=== PATIENT | female | born 1940 | race African-American/Black ===

== ENCOUNTER 2020-07-08 00:50 | Emergency (ER) | payer OTHER ==
[~2020-07-08] VITALS: Ht 149.9 cm; Wt 56.5 kg
[2020-07-08] MEDS ORDERED: SODIUM CHLORIDE 0.9% 100 ML ONE (01:18)
[2020-07-08] MEDS ORDERED: IOVERSOL 350 MG/ML 100 ML VIAL ONE (01:18)
[2020-07-08] MEDS ORDERED: CLOP75TA60 PO (01:26)
[2020-07-08] MEDS ORDERED: METO25XL PO (01:26)
[2020-07-08] MEDS ORDERED: MONT4GRA2 PO (01:27)
[2020-07-08] MEDS ORDERED: ASPI-728 PO (01:27)
[2020-07-08 02:03] LABS: BASOPHILS % (AUTO) 0.5 % (0.0-2.0); EOSINOPHILS % (AUTO) 1.4 % (1.0-6.0); HEMOGLOBIN 15.7 g/dL (12.0-16.0); LYMPHOCYTES # (AUTO) 2.5 K/uL (1.0-4.8); LYMPHOCYTES % (AUTO) 25.8 % (22.0-44.0); MEAN CORPUSCULAR HEMOGLOBIN 27.5 pg (26.0-34.0); MEAN CORPUSCULAR HGB CONC 32.6 G/dL (31.0-37.0); MEAN CORPUSCULAR VOLUME 84 fL (80-100); MONOCYTES # (AUTO) 0.8 K/uL (0.1-1.0); MONOCYTES % (AUTO) 8.9 % (2.0-9.0); NEUTROPHILS % (AUTO) 63.4 % (40.0-70.0); PLATELET COUNT (AUTO) 524 K/uL (150-450); RED BLOOD CELL COUNT(AUTO) 5.69 MIL/uL (4.00-5.20); RED CELL DISTRIBUTION WIDTH 13.8 % (11.5-14.5)
[2020-07-08 02:14] LABS: INR 1.1 (0.9-1.1); PROTHROMBIN TIME 11.9 SEC (9.4-11.6)
[2020-07-08 02:17] LABS: ANION GAP 10 mmol/L (8-16); CALCIUM, TOTAL 10.6 mg/dL (8.8-10.5); CARBON DIOXIDE 29 mmol/L (22-29); CHLORIDE 101 mmol/L (98-107); CREATININE 0.95 mg/dL (0.60-1.30); GLUCOSE,RANDOM 130 mg/dL (70-110); POTASSIUM 3.9 mmol/L (3.5-5.1); SODIUM SERUM 140 mmol/L (136-145); UREA NITROGEN, BLOOD 13 mg/dL (7-18)
[2020-07-08 02:19] LABS: GLOMERULAR FILTR. RATE CALC > 60 mL/min (>60)
[2020-07-08 02:22] LABS: ALANINE AMINOTRANSFERASE 42 U/L (12-78); ALBUMIN 3.3 g/dL (3.4-5.0); ALKALINE PHOSPHATASE 90 U/L (46-116); ASPARTATE AMINOTRANSFERASE 60 U/L (15-37); BILIRUBIN,TOTAL 0.4 mg/dL (0.1-1.0)
[2020-07-08 02:57] LABS: COVID AG,FIA SOURCE NASOPHARYNGEAL
[2020-07-08] MEDS ORDERED: SODIUM CHLORIDE 0.9% 1,000 ML IV ONE (03:00)
[2020-07-08 03:58] VITALS: BP 124/60
== END 2020-07-08 06:05 | disposition short-term general hospital (02) ==
LOC: EMS 00:52
DX: G91.9 Hydrocephalus, unspecified (principal); I95.9 Hypotension, unspecified; I63.439 Cerebral infarction due to embolism of unspecified posterior cerebral artery; R55 Syncope and collapse; F17.200 Nicotine dependence, unspecified, uncomplicated; I48.91 Unspecified atrial fibrillation; Z20.822 Contact with and (suspected) exposure to COVID-19
CPT/HCPCS: 70450; 70496; 71045; 80053; 82962; 84484; 85025; 85610; 85730; 87426; 93005; 96360; 99291; 99292; J7030; J7050; Q9967